=== PATIENT | female | born 1960 | race Caucasian/White ===

== ENCOUNTER → 2024-07-06 09:33 | Outpatient (BNVA) | payer MEDICARE, SELFPAY | PROVIDERS: PCP Nurse Practitioner; Visit Provider Nurse Practitioner | DX: M25.511 Pain in right shoulder (principal) | CPT/HCPCS: 73030 ==

== ENCOUNTER 2024-07-28 06:30 | Outpatient (RCR) | payer MEDICARE, SELFPAY | END 2024-08-27 23:59 | disposition home or self-care (01) | LOC: TPT 06:30 | PROVIDERS: Visit Provider Nurse Practitioner | DX: M75.101 Unspecified rotator cuff tear or rupture of right shoulder, not specified as traumatic (principal); M12.811 Other specific arthropathies, not elsewhere classified, right shoulder | CPT/HCPCS: 97162 ==

== ENCOUNTER 2024-08-28 06:00 | Outpatient (RCR) | payer MEDICARE, SELFPAY | END 2024-09-26 23:59 | disposition home or self-care (01) | LOC: TPT 06:00 | PROVIDERS: Visit Provider Nurse Practitioner | DX: M75.101 Unspecified rotator cuff tear or rupture of right shoulder, not specified as traumatic (principal); M12.811 Other specific arthropathies, not elsewhere classified, right shoulder | CPT/HCPCS: 97110 ==

== ENCOUNTER 2025-06-18 22:40 | Emergency (ER) | payer OTHER, SELFPAY ==
[2025-06-18 22:40] VITALS: BP 193/84; PULSE 75; RESP 18; TEMP 36.6; O2SAT 99; BMI 35.6
--- OUTSIDE RECORDS SUMMARY | 2025-06-18 22:47 | XMS_ITS | Patient Health Record ---
Author Organization [facility] Address [address] [place] [address] Care Team Providers Care [employer] Football[employer] Name Role Phone Francine Donaldson Primary Care Provider FRANCINE DONALDSON Unavailable Unavailable Allergies Allergen (clinical drug ingredient) Drug/Non Drug Allergy documented on EMR Reaction Allergy Type Onset Date Status LamISIL hives Drug Allergy Active metoprolol Metoprolol shortness of breath Drug Allergy Active Reason For Referral No Information Medications Medication SIG (Take, Route, Frequency, Duration) Notes Start Date End Date Status Cetirizine HCl 10 MG Tablet 1 tablet Ora l Once a day; Duration: 30 days Active amLODIPine Besylate 5 MG Tablet Take 1 tablet by mouth once daily; Duration: 30 Active Est Estrogens-Methyltest 1.25-2.5 MG Tablet 1 tablet Orally Once a day; Duration: 30 days 02/06/2023 Active busPIRone HCl 10 MG Tablet TAKE 1/2 TO 1 (ONE-HALF TO ONE) TABLET BY MOUTH THREE TIMES DAILY NEEDED FOR ANXIETY; Duration: 30 days Not-Taking Progesterone 200 MG Capsule 1 capsule Or ally at HS; Duration: 30 days 02/06/2023 Active Escitalopram Oxalate 20 MG Tablet 1 tablet Orally Once a day Not-Taking LORazepam 1 MG Tablet TAKE 1/2 TO 1 (ONE-HALF TO ONE) TABLET BY MOUTH ONCE DAILY IN THE EVENING NEEDED FOR SEVERE ANXIETY; Duration: 30 07/18/2023 Active Metoprolol Succinate ER 50 M G Tablet Extended Release 24 Hour 1 tablet Orally Once a day in evening; Duration: 90 days Not-Taking hydroCHLOROthiazide 12.5 MG Tablet Oral; Duration: 30 Not-Takin g traZODone HCl 50 MG Tablet 1 to 2 tablet sat bedtime as needed Orally; Duration: 30 day(s) 01/31/2023 Active Promethazine-DM 6.25-15 MG/5ML Syrup 5 to 10 ml as needed Orally every 4 hours prn evening cough; Duration: 30 days Not-Taking Azithromycin 250 MG Tablet 2 tablet on t he first day, then 1 tablet daily for 4 days Orally Once a day; Duration: 5 day(s) Not-Taking Cyclobenzaprine HCl 10 MG Tablet 1 tablet as needed Orally Twice a day 02/11/2024 Active Omeprazole 40 MG Capsule Delayed Release 1 capsule 30 minutes before morning meal Orally Once a day; Duration: 30 days 03/10/2024 Active Atorvastatin Calcium 20 MG Tablet 1 tablet Orally Once a day; Duration: 30 days Active PARoxetine HCl 40 MG Tablet 1 tablet in the morning Orally Once a day Active Maxzide-25 37.5-25 MG Tablet 1 tab Orall y Once a day (dose change; Duration: 30 day(s) Not-Taking Olmesartan Medoxomil 40 MG Tablet Take 1 tablet by mouth once daily; Duration: 90 days Active Social History Tobacco Use: Social History Observation Description Date Details (start date - stop date) Never Smoker NA - NA Social History Depression Screening Social Info Question Answer Notes PHQ-9 Feeling down, depres sed, or hopeless More than half the days Trouble falling or staying asleep, or sleeping t oo much Nearly every day Feeling tired or having little energy Several da ys Poor appetite or overeating Nearly every day Feeling bad about yourself, or that you are a failure, or have let yourself or your family down Nearly every day Trouble concentrating on thi ngs, such as reading the newspaper or watching television Several days Moving or speaking so slowly that other people could have noticed. Or the opposite ? being so fidgety or restless that you have been moving around a lot more than usual Not at all Drugs/Alcohol: Social Info Question Answer Notes Alcohol Screen (Audit-C) Did you have a drink containing alcohol in the past year? No Points 0 Interpretation Negative Drugs Have you used drugs other than those for medical reasons in the past 12 months? No Tobacco Use: Social Info Question Answer Notes xTobacco Use/Smoking Are you a nonsmoker Additional Details Category Social Info Options Details Drugs/Alcohol: Do you smoke marijuana? De nies Do you drink alcohol? Yes, occas ionally Section Notes: 06/07/2022 08/14/23 PHQ9 06/07/2022 08/14/23 PHQ9 06/07/2022 08/14/23 PHQ9 06/07/2022 08/14/23 PHQ9 06/07/2022 08/14/23 PHQ9 06/07/2022 08/14/23 PHQ9 06/07/2022 06/07/2022 08/14/23 PHQ9 03/17/24 PHQ9 06/07/2022 08/14/23 PHQ9 03/17/24 PHQ9 06/07/2022 08/14/23 PHQ9 03/17/24 PHQ9 06/07/2022 08/14/23 PHQ9 03/17/24 PHQ9 06/07/2022 06/07/2022 06/07/2022 06/07/2022 06/07/2022 08/14/23 PHQ9 06/07/2022 08/14/23 PHQ9 03/17/24 PHQ9 06/07/2022 08/14/23 PHQ9 03/17/24 PHQ9 06/07/2022 08/14/23 PHQ9 03/17/24 PHQ9 06/07/2022 08/14/23 PHQ9 06/07/2022 08/14/23 PHQ9 06/07/2022 06/07/2022 06/07/2022 06/07/2022 08/14/23 PHQ9 03/17/24 PHQ9 Problems Problem Type SNOMED Code ICD Code Onset Dates Problem Status W/U Status Risk Notes Problem Primary insomnia (4411304) Primary insomnia (F51.01) Active confirmed Problem Sore throat (685006346) Sore throat (J02.9) Active confirmed Problem Bronchitis (28928967) Bronchitis (J40) Active confirmed Problem Anxiety (20056672) Anxiety (F41.9) Active confi rmed Problem Sinusitis (59813702) Sinusitis (J32.9) Active confirmed Problem Insomnia (244634396) Insomnia (G47.00) Active confirmed Problem Chronic kidney disease (760925425) Chronic kidney disease (N18.9) Active confirmed Problem Depression (199806765) Depression (F32.9) Active confirmed Problem Obese class I (finding) (438711672586278) Obesity (BMI 30.0-34.9) (E66.9) Active confirmed Problem Female climacteric state (739596482) Female climacteric state (N95.1) Active confirmed Problem Swelling (74401029) Swelling (R60.9) Active con firmed Problem Depression (440232213) Other depression (F32.89) Active confirmed Problem Hypertension (97028742) Hypertension (I10) Active confirmed Problem Hyperlipidemia (71288650) Hyperlipidemia (E78.5) Active confirmed Problem Gastroesophageal reflux disease (487558237) GERD (gastroesophageal reflux disease) (K21.9) Active confirmed Problem Environmental allergy (409099834) Environmental allergies (Z91.09) Active confirmed Problem Primary hypertension (29495075) Primary hypertension (I10) Active confirmed Problem Cough (90370910) Cough (R05.9) Active confirmed Problem chronic kidney disease stage 3a (disorder) (587637878) CKD stage G3a/A1, GFR 45-59 and albumin creatinine ratio <30 mg/g (N18.31) Active confirmed Encounters Encounter Location Date Provider Diagnosis [facility] [address] [place] [address] 07/27/2024 Francinepeter Razajudit Hypertension I10 and Hyperlipidemia E78.5 [facility] [place] 08/18/2024 Francinepeter Donaldson [facility] [address] [place] [address] 08/26/2024 Francinepeter Razajudit Primary hypertension I10 and Hyperlipidemia E78.5 [facility] [address] [place] [address] 09/22/2024 Francinepeter Razajudit Hypertension I10 and Hyperlipidemia E78.5 [facility] [address] [place] [address] 10/27/2024 Francinepeter Razajudit Assessments Encounter Date Diagnosis (ICD Code) Assessment Notes Treatment Notes Treatment Clinical Notes Section Notes 07/27/2024 Hypertension (ICD-10 - I10) 08/26/2024 Primary hypertension (ICD-10 - I10) 09/22/2024 Hypertension (ICD-10 - I10) 09/22/2024 Hyperlipidemia (ICD-10 - E78.5) 08/26/2024 Hyperlipidemia (ICD-10 - E78.5) 07/27/2024 Hyperlipidemia (ICD-10 - E78.5) Plan Of Treatment No Information Insurance Providers Payer Name Payer Address Payer Phone Subscriber Number Group Number Insured Name Patient Relationship to Insured Coverage Start Date Coverage End Date [employer] Replacement [address] [address] [place] [address] [id number] [id number] ARREDONDO Self - patient is the insured Medications Administered Medication Instructions Date of Administration Dosage Notes DEPO-Medrol 03/27/2024 40 mg [facility] 39795-695 3-01 pt tolerated well/instructed to wait 20 min dexAMETHasone 03/27/2024 4 mg [facility] 07057-5 423-00 pt tolerated well/instructed to wait 20 min Rocephin 04/19/2022 1 g [facility] [phone]- 11 pt tolerated well/instructed to wait 20 min dexAMETHasone 04/19/2022 8 mg [facility] 89038-7 65-30 pt tolerated well/instructed to wait 20 min Medical (General) History Medical History History ICD Code High Blood Pressure thyroid nodule Surgical History Surgery Date(Month/Year) tubal ligation tonsillectomy Hospitalization History Reason Date(Month/Year) see surgical history childbirth
--- NOTE | 2025-06-18 22:49 | XRR_ITS ---
PROCEDURE INFORMATION: Exam: XR Left Ankle Exam date and time: 06/18/2025 10:59 PM Age: 65 years old Clinical indication: Injury or trauma; Fall; Blunt trauma; Ankle; Left; Additional info: Ankle pain/injury TECHNIQUE: Imaging protocol: Radiologic exam of the left ankle. Views: 3 or more views. COMPARISON: No relevant prior studies available. FINDINGS: Bones/joints: Acute transverse fracture of the distal fibula, only mildly displaced. Distal tibia and talar dome appear intact. Small joint effusion. Soft tissues: Soft tissue swelling about the ankle greater laterally. XR/XR ankle LT min 3V* [id number] IMPRESSION: Acute mildly displaced distal fibular fracture with significant soft tissue swelling and small joint effusion.
[2025-06-18 23:32] VITALS: BP 161/100; PULSE 74; O2SAT 96
--- NOTE | 2025-06-18 23:44 | XRR_ITS ---
PROCEDURE INFORMATION: Exam: XR Left Knee Exam date and time: 06/18/2025 11:48 PM Age: 65 years old Clinical indication: C/O left knee pain post fall. Positive for distal fibular malleolus fracture. ; Additional info: Mild left prox fibular pain TECHNIQUE: Imaging protocol: Radiologic exam of the left knee. Views: 3 views. COMPARISON: CR (LOW EXM, ) 06/18/2025 10:59 PM FINDINGS: Bones/joints: No acute fracture or dislocation is identified. Soft tissues: Unremarkable. XR/XR knee LT 3V* [id number] IMPRESSION: No acute findings.
--- NOTE | 2025-06-19 00:12 | W.ED.EXTPRO ---
Documented by User: [email or web address] Matt 06/19/25 00:20 HPI - Extremity Problem General: Chief complaint: Extremity Injury, Lower Stated complaint: Right ankle pain Time Seen by Provider: 06/18/25 22:45 Source: patient Mode of arrival: EMS Limitations: no limitations History of Present Illness: Patient is a 65-year-old female who presents the emergency department by ambulance after injuring her left ankle. Patient was just walking when she rolled her left ankle, and notes that she has not been able to bear weight since. Reporting swelling as well as pain that radiates proximally. She is still able to move her toes and has good sensations distally. No other injuries suffered with the fall. She is requesting something for pain at this time. MD Complaint: joint pain Onset (ago): minute(s) Pain Consistency: constant Location: left and lower extremity (ankle) Radiation: proximal Exacerbating factors: weight bearing, walking and palpation Associated symptoms: Deny chest pain, fever(s) or rash Related Data Home Medications ?Medication ?Instructions ?Recorded ?Confirmed ciprofloxacin HCl 500 mg tablet ea PO 10/05/22 07/06/24 metoprolol succinate 50 mg ea PO 10/05/22 07/06/24 tablet,extended release 24 hr olmesartan 40 mg tablet ea PO 10/05/22 07/06/24 triamterene 37.5 ea PO 10/05/22 07/06/24 mg-hydrochlorothiazide 25 mg tablet venlafaxine 75 mg tablet tab PO 10/05/22 07/06/24 Previous Rx's ?Medication ?Instructions ?Recorded oseltamivir 75 mg capsule (Tamiflu) 75 mg PO BID 5 days #10 caps 10/05/22 promethazine-DM 6.25 mg-15 mg/5 mL 5 - 10 ml PO Q6H PRN cough #200 mL 10/05/22 oral syrup tramadol 50 mg tablet 50 mg PO Q8H PRN pain #21 tabs 07/06/24 Allergies Allergy/AdvReac Type Severity Reaction Status Date / Time No Known Allergies Allergy Verified 07/06/24 09:49 Review of Systems General: Reports: 10 or more systems reviewed and unremarkable except in HPI and below Const: Denies: fever(s) or chills Card: Denies: chest pain Resp: Denies: dyspnea or productive cough GI: Denies: abdominal pain, nausea, vomiting or diarrhea : Denies: flank pain Musc: Reports: joint pain (Left ankle) and joint swelling (Left ankle); Denies: neck pain, back pain, extremity pain, extremity swelling, joint redness, joint warmth, limited range of motion or muscle weakness Skin/Breast: Denies: rash Neuro: Denies: headache(s), numbness in extremities or weakness in extremities PFSH ED PFSH: Medical History Tear of right supraspinatus tendon Rotator cuff arthropathy of right shoulder Primary osteoarthritis, right shoulder Osteoarthritis of right acromioclavicular joint Social History Smoking and tobacco/nicotine status: never used tobacco/nicotine Physical Exam Const: COMMON NORMALS: no acute distress, patient oriented x3, no limitations, healthy appearing, alert and well nourished HENMT: COMMON NORMALS: normocephalic and atraumatic HEAD & SCALP: normocephalic and atraumatic Neck/C-Spine: COMMON NORMALS: full ROM, supple and no meningeal signs Resp: COMMON NORMALS: normal respiratory effort, No use of accessory muscles and clear to auscultation bilaterally AUSCULTATION: clear to auscultation bilaterally Cardio: COMMON NORMALS: regular rate and regular rhythm RATE: regular rate RHYTHM: regular rhythm Extremity: COMMON NORMALS: capillary refill normal and no clubbing, cyanosis or edema NARRATIVE EXTREMITY EXAM: Swelling noted to left lateral malleolus, diffuse tender to palpation extending proximally up the left lateral leg. Mild tenderness to palpation about the knee joint, nonspecific. No signs of injury. Distal neurovascular exam in the left foot is normal. Neuro: COMMON NORMALS: patient oriented x3, moves all extremities, no focal motor deficits and no sensory deficits noted SENSORIUM/ORIENTATION: Yes alert MENINGEAL SIGNS: Yes no meningeal signs Skin: COMMON NORMALS: no rashes or lesions noted GENERAL SKIN EXAM: no rashes or lesions noted Course Vital Signs: Vital signs: Vital Signs Temperature 97.9 F 06/18/25 22:40 Pulse Rate 71 06/19/25 00:39 Respiratory Rate 18 06/18/25 22:40 Blood Pressure 151/81 06/19/25 00:39 Pulse Oximetry 95 06/19/25 00:39 Oxygen Delivery Me thod Room Air 06/18/25 23:32 MDM - Extremity (Nontraumatic) Medical Decision Making Patient presenting for ambulance after injuring her left ankle. On exam neurovascular status is intact and there is pain and swelling to left lateral malleolus. An x-ray of the ankle confirms an acute mildly displaced distal fibular fracture, not requiring any manipulation here in the emergency department. We will put her in a splint and refer her to podiatry for reevaluation. Discussed conservative measures at home and return precautions given. Post splint neurovascular exam is normal. Lab Data Radiology Impressions Ankle X-Ray 06/18/25 22:49 IMPRESSION: Acute mildly displaced distal fibular fracture with significant soft tissue swelling and small joint effusion. Knee X-Ray 06/18/25 23:44 IMPRESSION: No acute findings. All radiology interpretation(s) finalized by discharge Discharge Plan Discharge Patient Disposition: Home Clinical Impression: Ankle fracture, left Qualifiers: Encounter type: initial encounter Fracture type: closed Qualified Code(s): S82.892A - Other fracture of left lower leg, initial encounter for closed fracture Condition: Stable Prescriptions: No Action tramadol 50 mg tablet 50 mg PO Q8H PRN (Reason: pain) Qty: 21 0RF olmesartan 40 mg tablet PO ciprofloxacin HCl 500 mg tablet PO venlafaxine 75 mg tablet PO metoprolol succinate 50 mg tablet extended release 24 hr PO triamterene-hydrochlorothiazid 37.5-25 mg tablet PO oseltamivir [Tamiflu] 75 mg capsule 75 mg PO BID 5 Days Qty: 10 0RF promethazine-DM 6.25-15 mg/5 mL syrup 5 - 10 ml PO Q6H PRN (Reason: cough) Qty: 200 1RF Discharge Orders: Discharge ED (Routine); Ordered 06/19/25 Ordered By: Reese Perales Patient Instructions: Patient Portal & Omid Instructions Activity Restrictions/Additional Instructions: Left Ankle Fracture Discharge Discharge Instructions: Left Distal Fibular Fracture You have a fracture (break) in the bone on the outside of your left ankle (distal fibula). This was confirmed by X-ray. Your ankle has been placed in a splint to keep it stable and help it heal. You have also been given crutches and should not put any weight on your injured leg until you are seen by a podiatry specialist. What to Expect - Healing usually takes several weeks. Most ankle fractures heal well with proper care and follow-up. - You will be referred to podiatry for further evaluation. They will decide when it is safe to start putting weight on your ankle. Activity and Mobility - Non-weightbearing: Do not put any weight on your left leg. Use crutches as instructed. - Splint care: Keep your splint clean and dry. Do not remove it unless told to do so by your doctor. - Movement: You may gently move your toes and knee to help with circulation and prevent stiffness, but do not move your ankle. - Exercise: If you are able, do gentle exercises for your other leg and arms to help maintain strength. Pain Management - Take pain medication as prescribed or recommended by your doctor. - Elevate your leg above heart level when resting to help reduce swelling. - Apply ice packs (wrapped in a towel) to your ankle for 15-20 minutes every 2-3 hours for the first 48 hours, unless your doctor tells you otherwise. Complications to Watch For Call your doctor or go to the emergency room if you notice: - Increased pain, swelling, or numbness in your foot or toes - Blue or pale color in your toes - Splint feels too tight or you cannot move your toes - Fever, chills, or drainage from the splint - Signs of blood clots: sudden pain or swelling in your calf Preventing Problems - Eat a healthy diet with enough protein, calcium, and vitamin D to help your bone heal. - Try to stay as active as possible with safe movements to prevent muscle loss and blood clots. - If you have a history of osteoporosis or falls, let your doctor know. You may need further evaluation or treatment. Follow-Up - Keep your follow-up appointment with podiatry. They will check your healing and let you know when you can start putting weight on your ankle. - If you have any questions or concerns before your appointment, contact your healthcare provider. Reminders - Do not drive while you are non-weightbearing. - Do not remove or get your splint wet. - Use your crutches as shown by your healthcare team. Summary Your ankle fracture is being treated with a splint and crutches. Do not put weight on your injured leg until cleared by podiatry. Watch for signs of complications and keep your follow-up appointments. With proper care, most people recover well from this type of injury. If you have any questions, please contact your healthcare provider. Print Language: Slovenian Coding Level of Care Code ED Information Systems Auditor for [employer] Fwd Documented by User: Bjorn Viveros, 06/19/25 04:17 HPI - Extremity Problem General: Chief complaint: Extremity Injury, Lower Stated complaint: Right ankle pain Time Seen by Provider: 06/18/25 22:45 Related Data Home Medications ?Medication ?Instructions ?Recorded ?Confirmed ciprofloxacin HCl 500 mg tablet ea PO 10/05/22 07/06/24 metoprolol succinate 50 mg ea PO 10/05/22 07/06/24 tablet,extended release 24 hr olmesartan 40 mg tablet ea PO 10/05/22 07/06/24 triamterene 37.5 ea PO 10/05/22 07/06/24 mg-hydrochlorothiazide 25 mg tablet venlafaxine 75 mg tablet tab PO 10/05/22 07/06/24 Previous Rx's ?Medication ?Instructions ?Recorded oseltamivir 75 mg capsule (Tamiflu) 75 mg PO BID 5 days #10 caps 10/05/22 promethazine-DM 6.25 mg-15 mg/5 mL 5 - 10 ml PO Q6H PRN cough #200 mL 10/05/22 oral syrup tramadol 50 mg tablet 50 mg PO Q8H PRN pain #21 tabs 07/06/24 Allergies Allergy/AdvReac Type Severity Reaction Status Date / Time No Known Allergies Allergy Verified 07/06/24 09:49 PFS ED PFSH: Medical History Tear of right supraspinatus tendon Rotator cuff arthropathy of right shoulder Primary osteoarthritis, right shoulder Osteoarthritis of right acromioclavicular joint Social History Smoking and tobacco/nicotine status: never used tobacco/nicotine Course Vital Signs: Vital signs: Vital Signs Temperature 97.9 F 06/18/25 22:40 Pulse Rate 71 06/19/25 00:39 Respiratory Rate 18 06/18/25 22:40 Blood Pressure 151/81 06/19/25 00:39 Pulse Oximetry 95 06/19/25 00:39 Oxygen Delivery Me thod Room Air 06/18/25 23:32 MDM - Extremity (Nontraumatic) Medical Decision Making Patient presenting for ambulance after injuring her left ankle. On exam neurovascular status is intact and there is pain and swelling to left lateral malleolus. An x-ray of the ankle confirms an acute mildly displaced distal fibular fracture, not requiring any manipulation here in the emergency department. We will put her in a splint and refer her to podiatry for reevaluation. Discussed conservative measures at home and return precautions given. Post splint neurovascular exam is normal. This patient was originally seen by Mr. Angella PA-C. I agree with his history, evaluation, and management. Lab Data Radiology Impressions Ankle X-Ray 06/18/25 22:49 IMPRESSION: Acute mildly displaced distal fibular fracture with significant soft tissue swelling and small joint effusion. Knee X-Ray 06/18/25 23:44 IMPRESSION: No acute findings. Discharge Plan Discharge Patient Disposition: Home Clinical Impression: Ankle fracture, left Qualifiers: Encounter type: initial encounter Fracture type: closed Qualified Code(s): S82.892A - Other fracture of left lower leg, initial encounter for closed fracture Condition: Stable Prescriptions: No Action tramadol 50 mg tablet 50 mg PO Q8H PRN (Reason: pain) Qty: 21 0RF olmesartan 40 mg tablet PO ciprofloxacin HCl 500 mg tablet PO venlafaxine 75 mg tablet PO metoprolol succinate 50 mg tablet extended release 24 hr PO triamterene-hydrochlorothiazid 37.5-25 mg tablet PO oseltamivir [Tamiflu] 75 mg capsule 75 mg PO BID 5 Days Qty: 10 0RF promethazine-DM 6.25-15 mg/5 mL syrup 5 - 10 ml PO Q6H PRN (Reason: cough) Qty: 200 1RF Discharge Orders: Discharge ED (Routine); Ordered 08/23/25 Ordered By: Reese Perales Patient Instructions: Patient Portal & Omid Instructions Activity Restrictions/Additional Instructions: Left Ankle Fracture Discharge Discharge Instructions: Left Distal Fibular Fracture You have a fracture (break) in the bone on the outside of your left ankle (distal fibula). This was confirmed by X-ray. Your ankle has been placed in a splint to keep it stable and help it heal. You have also been given crutches and should not put any weight on your injured leg until you are seen by a podiatry specialist. What to Expect - Healing usually takes several weeks. Most ankle fractures heal well with proper care and follow-up. - You will be referred to podiatry for further evaluation. They will decide when it is safe to start putting weight on your ankle. Activity and Mobility - Non-weightbearing: Do not put any weight on your left leg. Use crutches as instructed. - Splint care: Keep your splint clean and dry. Do not remove it unless told to do so by your doctor. - Movement: You may gently move your toes and knee to help with circulation and prevent stiffness, but do not move your ankle. - Exercise: If you are able, do gentle exercises for your other leg and arms to help maintain strength. Pain Management - Take pain medication as prescribed or recommended by your doctor. - Elevate your leg above heart level when resting to help reduce swelling. - Apply ice packs (wrapped in a towel) to your ankle for 15-20 minutes every 2-3 hours for the first 48 hours, unless your doctor tells you otherwise. Complications to Watch For Call your doctor or go to the emergency room if you notice: - Increased pain, swelling, or numbness in your foot or toes - Blue or pale color in your toes - Splint feels too tight or you cannot move your toes - Fever, chills, or drainage from the splint - Signs of blood clots: sudden pain or swelling in your calf Preventing Problems - Eat a healthy diet with enough protein, calcium, and vitamin D to help your bone heal. - Try to stay as active as possible with safe movements to prevent muscle loss and blood clots. - If you have a history of osteoporosis or falls, let your doctor know. You may need further evaluation or treatment. Follow-Up - Keep your follow-up appointment with podiatry. They will check your healing and let you know when you can start putting weight on your ankle. - If you have any questions or concerns before your appointment, contact your healthcare provider. Reminders - Do not drive while you are non-weightbearing. - Do not remove or get your splint wet. - Use your crutches as shown by your healthcare team. Summary Your ankle fracture is being treated with a splint and crutches. Do not put weight on your injured leg until cleared by podiatry. Watch for signs of complications and keep your follow-up appointments. With proper care, most people recover well from this type of injury. If you have any questions, please contact your healthcare provider. Print Language: Slovenian Coding Level of Care Code ED Information Systems Auditor for Beulah Marcelo
[2025-06-19 00:39] VITALS: BP 151/81; PULSE 71; O2SAT 95
--- NOTE | 2025-06-21 12:36 | DCPLANNER ---
messaged podiatry for er f/u
== END 2025-06-19 00:40 | disposition home or self-care (01) ==
PROVIDERS: Emergency Provider Physician Assistant
DX: S82.832A Other fracture of upper and lower end of left fibula, initial encounter for closed fracture (principal); X58.XXXA Exposure to other specified factors, initial encounter
CPT/HCPCS: 29515; 73562; 73610; 99283; J9999

== ENCOUNTER → 2025-06-21 15:31 | Outpatient (BNVA) | payer OTHER, SELFPAY | PROVIDERS: PCP Nurse Practitioner; Visit Provider Podiatrist Foot & Ankle Surgery | DX: S82.832A Other fracture of upper and lower end of left fibula, initial encounter for closed fracture (principal); X50.9XXA Other and unspecified overexertion or strenuous movements or postures, initial encounter | CPT/HCPCS: 99204 ==

== ENCOUNTER 2025-06-22 10:42 | Outpatient (CLI) | payer MEDICARE, SELFPAY | END 2025-06-22 10:43 | disposition home or self-care (01) | LOC: SPT 10:42 | PROVIDERS: PCP Nurse Practitioner; Visit Provider Podiatrist Foot & Ankle Surgery | DX: Z46.89 Encounter for fitting and adjustment of other specified devices (principal); S82.832D Other fracture of upper and lower end of left fibula, subsequent encounter for closed fracture with routine healing; X58.XXXD Exposure to other specified factors, subsequent encounter | CPT/HCPCS: L4361 ==

== ENCOUNTER → 2025-07-07 14:33 | Outpatient (BNVA) | payer SELFPAY | PROVIDERS: PCP Nurse Practitioner; Visit Provider Podiatrist Foot & Ankle Surgery | DX: M25.572 Pain in left ankle and joints of left foot (principal); S82.832D Other fracture of upper and lower end of left fibula, subsequent encounter for closed fracture with routine healing; X50.1XXD Overexertion from prolonged static or awkward postures, subsequent encounter | CPT/HCPCS: 73610 ==

== ENCOUNTER 2025-07-07 16:02 | Outpatient (CLI) | payer SELFPAY | END 2025-07-07 16:03 | disposition home or self-care (01) | LOC: SPT 16:03 | PROVIDERS: PCP Nurse Practitioner; Visit Provider Podiatrist Foot & Ankle Surgery | DX: Z46.89 Encounter for fitting and adjustment of other specified devices (principal); S82.832D Other fracture of upper and lower end of left fibula, subsequent encounter for closed fracture with routine healing; X58.XXXD Exposure to other specified factors, subsequent encounter | CPT/HCPCS: L1902 ==